=== PATIENT | male | born 1970 | race Caucasian/White ===

== ENCOUNTER 2017-05-29 09:14 | Emergency (ER) | payer MEDICARE, MEDICAID ==
[~2017-05-29] VITALS: Ht 180.3 cm; Wt 88.0 kg
[~2017-05-29 09:14] MED LIST: CIPR500T4 PO; KEPP1000 PO; LACO100 PO; TRIL600T PO
[2017-05-29 09:19] VITALS: BP 184/109; PULSE 77; RESP 16; TEMP 97.8; O2SAT 98
[2017-05-29] MEDS ORDERED: LACO100 PO (09:31)
[2017-05-29] MEDS ORDERED: KEPP10002 PO (09:31)
[2017-05-29] MEDS ORDERED: TRIL600T PO (09:31)
--- NOTE | 2017-05-29 09:50 | PD ---
HPI Chief Complaint: Dizziness Time Seen by Provider: 09:47 Travel History International Travel<30 days: No Contact w/Intl Traveler<30days: No Traveled to known affect area: No History of Present Illness HPI 46-year-old male patient with history of MR, seizures, presents to the ER today brought in by mom because he has been having fairly elevated blood pressure the last few days noted by his primary care physician several days ago when they saw them, and he has been having some intermittent dizziness episodes, and apparently a few days ago had some numbness in the left leg that lasted about an hour. He states that all the symptoms are gone he feels fine now. He denies any chest pains, shortness of breath, or any other symptoms. Mom states that his blood pressure was 200/100 at home today. Patient has had no previous history of hypertension until recently noted. Modifying Factors: None Associated Signs & Symptoms: Intermittent dizziness, left leg paresthesia, elevated blood pressures Risk Factors: Seizure history PFSH Past Medical History Cancer: No Cardiovascular Problems: No Developmental Delay: Yes (COGNITIVE DEFICITS) Diminished Hearing: No Endocrine: No Gastrointestinal Disorders: No Genitourinary: No Immune Disorder: No Implanted Vascular Access Dvce: No Musculoskeletal: No Neurologic: Yes Psychiatric: Yes (mentally challenged at ) Reproductive: No Respiratory: No Seizures: Yes (EPILEPSY) Tetanus Vaccination: Unknown Influenza Vaccination: Yes Past Surgical History Eye Surgery: Yes (left eye-lazy eye) Social History Alcohol Use: No Tobacco Use: No Substance Use: No Allergies-Medications (Allergen,Severity, Reaction): Coded Allergies: No Known Allergies (Unverified Adverse Reaction, Unknown, 05/29/17) Reported Meds & Prescriptions Reported Meds & Active Scripts Active Reported Vimpat (Lacosamide) 100 Mg Tab 100 Mg PO BID Keppra (Levetiracetam) 1,000 Mg Tab 2,000 Mg PO BID Trileptal (Oxcarbazepine) 600 Mg Tab 1,200 Mg PO BID Review of Systems Except as stated in HPI: all other systems reviewed are Neg Physical Exam Narrative GENERAL: Well-developed middle age male patient currently none acute distress. Awake and oriented 3. SKIN: Focused skin assessment warm/dry. HEAD: Atraumatic. Normocephalic. EYES: Pupils equal and round. No scleral icterus. No injection or drainage. ENT: No nasal bleeding or discharge. Mucous membranes pink and moist. NECK: Trachea midline. No JVD. Supple. CARDIOVASCULAR: Regular rate and rhythm. No murmur appreciated. RESPIRATORY: No accessory muscle use. Clear to auscultation. Breath sounds equal bilaterally. GASTROINTESTINAL: Abdomen soft, non-tender, nondistended. Hepatic and splenic margins not palpable. MUSCULOSKELETAL: No obvious deformities. No clubbing. No cyanosis. No edema. NEUROLOGICAL: Awake and alert. No obvious cranial nerve deficits. Motor grossly within normal limits. Normal speech. No pronator drift. PSYCHIATRIC: Appropriate mood and affect; insight and judgment normal. Data Data Last Documented VS Vital Signs Date Time Temp Pulse Resp B/P (MAP) Pulse Ox O2 Delivery O2 Flow Rate FiO2 05/29/17 10:59 98.4 68 16 161/112 (128) 98 Room Air Orders Orders Electrocardiogram (05/29/17 09:47) Complete Blood Count With Diff (05/29/17 09:47) Comprehensive Metabolic Panel (05/29/17 09:47) Troponin I (05/29/17 09:47) Ct Brain W/O Iv Contrast(Rout) (05/29/17 09:47) Ecg Monitoring (05/29/17 09:47) Iv Access Insert/Monitor (05/29/17 09:47) Oximetry (05/29/17 09:47) Sodium Chloride 0.9% Flush (Ns Flush) (05/29/17 10:00) Ed Discharge Order (05/29/17 11:08) Labs Laboratory Tests Test 05/29/17 09:59 White Blood Count 6.2 TH/MM3 Red Blood Count 5.01 MIL/MM3 Hemoglobin 15.4 GM/DL Hematocrit 45.5 % Mean Corpuscular Volume 90.7 FL Mean Corpuscular Hemoglobin 30.7 PG Mean Corpuscular Hemoglobin Concent 33.8 % Red Cell Distribution Width 12.3 % Platelet Count 197 TH/MM3 Mean Platelet Volume 7.7 FL Neutrophils (%) (Auto) 68.3 % Lymphocytes (%) (Auto) 20.2 % Monocytes (%) (Auto) 9.1 % Eosinophils (%) (Auto) 2.2 % Basophils (%) (Auto) 0.2 % Neutrophils # (Auto) 4.2 TH/MM3 Lymphocytes # (Auto) 1.3 TH/MM3 Monocytes # (Auto) 0.6 TH/MM3 Eosinophils # (Auto) 0.1 TH/MM3 Basophils # (Auto) 0.0 TH/MM3 CBC Comment DIFF FINAL Differential Comment Blood Urea Nitrogen 8 MG/DL Creatinine 1.10 MG/DL Random Glucose 87 MG/DL Total Protein 7.1 GM/DL Albumin 3.9 GM/DL Calcium Level 8.3 MG/DL Alkaline Phosphatase 107 U/L Aspartate Amino Transf (AST/SGOT) 14 U/L Alanine Aminotransferase (ALT/SGPT) 21 U/L Total Bilirubin 0.4 MG/DL Sodium Level 134 MEQ/L Potassium Level 4.3 MEQ/L Chloride Level 98 MEQ/L Carbon Dioxide Level 29.9 MEQ/L Anion Gap 6 MEQ/L Estimat Glomerular Filtration Rate 73 ML/MIN Troponin I LESS THAN 0.02 NG/ML [facility] Medical Decision Making Medical Screen Exam Complete: Yes Emergency Medical Condition: Yes Medical Record Reviewed: Yes Interpretation(s) EKG shows NSR, no ST elevation or depression, and no arrhythmias. No significant T-wave inversions. Laboratory Tests Test 05/29/17 09:59 Monocytes (%) (Auto) 9.1 % (0.0-8.0) Calcium Level 8.3 MG/DL (8.5-10.1) Aspartate Amino Transf (AST/SGOT) 14 U/L (15-37) Sodium Level 134 MEQ/L (136-145) Estimat Glomerular Filtration Rate 73 ML/MIN (>89) Troponin I LESS THAN 0.02 NG/ML Last [address] 05/29/17 0947 Signed Impressions: Service Date/Time: Monday, May 29, 2017 10:22 - CONCLUSION: 1. No acute intracranial findings. 2. Ethmoid sinus disease. Delfino Bowman MD Differential Diagnosis High blood pressure, dizziness, paresthesias in the leg: Hypertensive urgency versus acute intracranial processes versus anxiety versus CVA versus chronic hypertension Narrative Course Lab work did not show significant metabolic issues. EKG did not show significant dysrhythmias or ST changes. Cardiac enzymes are negative. Patient has no focal findings in the ER. CT the brain did not show any signs of acute intracranial processes. At this point, his blood pressure is still fairly elevated in the ER. He has had 2 confirmed elevated blood pressure readings at this point and I think that the patient may need to be on blood pressure medication. However, he is currently asymptomatic and my plan would be to refer him back to primary care doctor regarding this process for further follow- up of chronic hypertension. Return for any new symptoms or worsening in issues as needed. The plan has been discussed with mom and she states understanding. Diagnosis Primary Impression: Hypertension Disposition: 01 DISCHARGE HOME Condition: Stable Lucia Oliver MD May 29, 2017 09:50
[2017-05-29] MEDS ORDERED: SODIUM CHLORIDE 0.9% FLUSH 10 ML FLUSH IVF PRN (10:00)
[2017-05-29 10:17] LABS: AUTOMATED NEUTROPHIL # 4.2 TH/MM3 (1.8-7.7); BASOPHIL % 0.2 % (0.0-2.0); EOSINOPHIL # 0.1 TH/MM3 (0-0.4); EOSINOPHIL % 2.2 % (0.0-4.0); HEMATOCRIT 45.5 % (39.0-51.0); HEMOGLOBIN 15.4 GM/DL (13.0-17.0); LYMPH % 20.2 % (9.0-44.0); LYMPHOCYTE # 1.3 TH/MM3 (1.0-4.8); MEAN CELL VOLUME 90.7 FL (80.0-100.0); MEAN CORPUSCULAR HEMOGLOBIN 30.7 PG (27.0-34.0); MEAN CORPUSCULAR HGB CONC 33.8 % (32.0-36.0); MEAN PLATELET VOLUME 7.7 FL (7.0-11.0); MONO % 9.1 % (0.0-8.0); MONOCYTE # 0.6 TH/MM3 (0-0.9); NEUT % 68.3 % (16.0-70.0); PLATELET COUNT 197 TH/MM3 (150-450); RED BLOOD COUNT 5.01 MIL/MM3 (4.50-5.90); RED CELL DISTRIBUTION WIDTH 12.3 % (11.6-17.2); WHITE BLOOD COUNT 6.2 TH/MM3 (4.0-11.0)
[2017-05-29 10:24] LABS: CHLORIDE 98 MEQ/L (98-107); SODIUM (NA) 134 MEQ/L (136-145)
[2017-05-29 10:27] LABS: CALCIUM 8.3 MG/DL (8.5-10.1)
[2017-05-29 10:28] LABS: ALBUMIN 3.9 GM/DL (3.4-5.0); BICARBONATE 29.9 MEQ/L (21.0-32.0); BLOOD UREA NITROGEN 8 MG/DL (7-18); GLUCOSE,RANDOM 87 MG/DL (74-106)
[2017-05-29 10:31] LABS: ALT (GPT) 21 U/L (12-78); AST (GOT) 14 U/L (15-37); GLOMERULAR FILTRATION RATE 73 ML/MIN (>89)
[2017-05-29 10:32] LABS: TOTAL BILIRUBIN ADULT 0.4 MG/DL (0.2-1.0); TOTAL PROTEIN 7.1 GM/DL (6.4-8.2)
[2017-05-29 10:33] LABS: ALKALINE PHOSPHATASE 107 U/L (45-117)
[2017-05-29 10:35] LABS: TROPONIN I LESS THAN 0.02 NG/ML (0.02-0.05)
--- NOTE | 2017-05-29 10:55 | RADRPT ---
EXAM DATE/TIME: 05/29/2017 10:22 [facility] COMPARISON: CT BRAIN W/O CONTRAST, July 30, 2014, 10:13. INDICATIONS : Hypertension for four days. Dizziness. RADIATION DOSE: 57.96 CTDIvol (mGy) MEDICAL HISTORY : Seizures. SURGICAL HISTORY : None. ENCOUNTER: Initial ACUITY: 4 - 6 days PAIN SCALE: 0/10 LOCATION: cranial TECHNIQUE: Multiple contiguous axial images were obtained of the head. Using automated exposure control and adj ustment of the mA and/or kV according to patient size, radiation dose was kept as low as reasonably a chievable to obtain optimal diagnostic quality images. DICOM format image data is available electro nically for review and comparison. FINDINGS: CEREBRUM: The ventricles are normal for age. No evidence of midline shift, mass lesion, hemorrhage or acute in farction. No extra-axial fluid collections are seen. POSTERIOR FOSSA: The cerebellum and brainstem are intact. The 4th ventricle is midline. The cerebellopontine angle i s unremarkable. EXTRACRANIAL: Moderate partial opacification of the ethmoid sinuses. SKULL: The calvaria is intact. No evidence of skull fracture. CONCLUSION: 1. No acute intracranial findings. 2. Ethmoid sinus disease. Delfino Bowman MD on May 29, 2017 at 10:50 Board Certified Radiologist. This report was verified electronically.
[2017-05-29 10:59] VITALS: BP 161/112; PULSE 68; RESP 16; TEMP 98.4; O2SAT 98
--- NOTE | 2017-05-29 17:20 | EKG ---
Date Performed: 05/29/2017 Time Performed: 09:54:00 PTAGE: 46 years EKG: Sinus rhythm NORMAL ECG PREVIOUS TRACING : 06/21/2015 12.48 Since previous tracing, no significant change noted DOCTOR: John Perez Interpretating Date/Time 05/29/2017 17:18:44
== END 2017-05-29 11:22 | disposition home or self-care (01) ==
LOC: PHED 09:14
DX: I10 Essential (primary) hypertension (principal); R20.0 Anesthesia of skin; G40.909 Epilepsy, unspecified, not intractable, without status epilepticus
CPT/HCPCS: 70450; 80053; 84484; 85025; 93005; 99285